=== PATIENT | male | born 1995 | race Hispanic/Latino ===

== ENCOUNTER 2017-02-16 17:23 | Emergency (ER) | payer SELFPAY ==
[~2017-02-16] VITALS: Ht 172.7 cm; Wt 68.0 kg
[2017-02-16 18:15] LABS: URINE BILIRUBIN - DIPSTICK NEGATIVE (NEGATIVE); URINE BLOOD DIPSTICK NEGATIVE (NEGATIVE); URINE CLARITY CLEAR; URINE COLOR YELLOW; URINE GLUCOSE - DIPSTICK NEGATIVE (NEGATIVE); URINE KETONE NEGATIVE (NEGATIVE); URINE LEUK ESTERASE NEGATIVE (Negative); URINE NITRITE - DIPSTICK NEGATIVE (Negative); URINE PH 6.5 (4.5-8.0); URINE PROTEIN - DIPSTICK NEGATIVE (NEG-TRACE); URINE UROBILINOGEN - DIPSTICK 0.2 E.U./dL (0.2)
[2017-02-16] MEDS ORDERED: MOTRIN800 MG PO (18:15)
[2017-02-16] MEDS ORDERED: ULTRAM50 M1 PO (19:15)
[2017-02-16 19:20] VITALS: BP 128/70
== END 2017-02-16 19:24 | disposition home or self-care (01) | DRG 730 ==
LOC: ED 17:23
PROVIDERS: Emergency Medicine
DX: N43.3 Hydrocele, unspecified (principal); R10.31 Right lower quadrant pain; N50.811 Right testicular pain